=== PATIENT | female | born 1975 | race Two or more races ===

== ENCOUNTER 2018-11-07 10:44 | Emergency (ER) | payer SELFPAY ==
[~2018-11-07] VITALS: Ht 152.4 cm; Wt 61.8 kg
[2018-11-07] MEDS ORDERED: METF-960 PO (10:54)
[2018-11-07 10:55] LABS: GLUCOSE,POINT OF CARE 92 MG/DL (70-110)
[2018-11-07] MEDS: HYDROCODONE/ACETAMINOPHEN 5-325 MG TABLET PO ONE (12:05)
[2018-11-07] MEDS: FLUCONAZOLE 150 MG TABLET PO ONE (12:05)
[2018-11-07 13:35] VITALS: BP 119/54
== END 2018-11-07 13:41 | disposition home or self-care (01) ==
LOC: EMS 10:44
DX: N89.8 Other specified noninflammatory disorders of vagina (principal); E11.9 Type 2 diabetes mellitus without complications; F15.90 Other stimulant use, unspecified, uncomplicated; L29.2 Pruritus vulvae; Z79.84 Long term (current) use of oral hypoglycemic drugs